=== PATIENT | female | born 1980 | race Caucasian/White ===

== ENCOUNTER 2021-07-05 09:58 | Emergency (ER) | payer MEDICAID ==
[~2021-07-05] VITALS: Ht 149.9 cm; Wt 68.0 kg
[2021-07-05 10:12] VITALS: BP_SYST 130
--- NOTE | 2021-07-05 10:15 | NUR ---
Patient triaged and placed in waiting room. VSS and patient appears in no acute distress at this time. Accompanied by SELF , awaiting available bed, and MD notified of need for MSE.
[2021-07-05 11:34] LABS: BASOPHILS % (AUTO) 0.5 % (0.0-2.0); EOSINOPHILS # (AUTO) 0.2 K/uL (0.0-0.4); EOSINOPHILS % (AUTO) 2.5 % (0.0-4.0); HEMATOCRIT 36.9 % (36-48); HEMOGLOBIN 12.3 g/dL (12.0-16.0); LYMPHOCYTES # (AUTO) 1.3 K/uL (1.0-5.5); LYMPHOCYTES % (AUTO) 14.7 % (20.5-51.5); MEAN CORPUSCULAR HEMOGLOBIN 26 pg (27-31); MEAN CORPUSCULAR HGB CONC 33 % (32-36); MEAN CORPUSCULAR VOLUME 80 fL (79.0-98.0); MONOCYTES # (AUTO) 0.7 K/uL (0.0-1.0); MONOCYTES % (AUTO) 8.1 % (1.7-9.3); NEUTROPHILS # (AUTO) 6.6 K/uL (1.8-7.7); NEUTROPHILS % (AUTO) 74.2 % (40.0-70.0); PLATELET COUNT (AUTO) 277 K/uL (130-430); RED BLOOD CELL COUNT(AUTO) 4.64 MIL/uL (4.2-6.2); RED CELL DISTRIBUTION WIDTH 13.5 % (9.0-15.0); WHITE BLOOD COUNT (AUTO) 8.8 K/uL (4.8-10.8)
--- NOTE | 2021-07-05 12:00 | NUR ---
PT SEEN IN TRIAGE ROOM BY FOR EVALUATION
[2021-07-05 12:12] LABS: CALCIUM 9.6 mg/dL (8.4-11.0); CREATININE 1.03 mg/dL (0.55-1.30); POTASSIUM 4.2 mmol/L (3.5-5.1)
[2021-07-05 12:24] LABS: ALBUMIN 3.5 g/dL (3.4-4.8); TOTAL BILIRUBIN 0.3 mg/dL (0.0-1.0)
[2021-07-05 13:55] LABS: BILIRUBIN,URINE NEGATIVE (NEGATIVE); BLOOD, URINE NEGATIVE (NEGATIVE); CLARITY/URINE CLEAR (CLEAR); COLOR,URINE YELLOW (YELLOW); GLUCOSE,URINE NEGATIVE (NEGATIVE); KETONES,URINE TRACE (NEGATIVE); LEUKOCYTE ESTERASE ,URINE NEGATIVE (NEGATIVE); NITRITE, URINE NEGATIVE (NEGATIVE); PH,URINE 5.5 (5.0-8.0); PROTEIN URINE NEGATIVE (NEGATIVE); UROBILINOGEN,URINE 0.2 (0.2-1.0)
[2021-07-05 14:00] VITALS: BP_SYST 130
== END 2021-07-05 14:00 | disposition left against medical advice (07) ==
LOC: SED 09:58
DX: R10.9 Unspecified abdominal pain (principal); Z88.1 Allergy status to other antibiotic agents
CPT/HCPCS: 36415; 80053; 81003; 84702; 85025; 99283

== ENCOUNTER 2022-05-10 16:03 | Emergency (ER) | payer BC, MEDICAID ==
[~2022-05-10] VITALS: Ht 149.9 cm; Wt 72.6 kg
[2022-05-10 16:10] VITALS: BP_SYST 125
--- NOTE | 2022-05-10 16:17 | NUR ---
Patient triaged and placed in waiting room. VSS and patient appears in no acute distress at this time. Accompanied by SELF, awaiting available bed, and MD notified of need for MSE.
--- NOTE | 2022-05-10 16:19 | NUR ---
PT STATES SHE SLIPPED AND FELL DOWN 1 STAIR INJURING LEFT ANKLE/FOOT. STATES SHE CAN BARELY PUT WEIGHT ON FOOT. LIMPING.
--- NOTE | 2022-05-10 19:10 | NUR ---
MD DR WAITE AT BEDSIDE
[2022-05-10] MEDS ORDERED: IBUP-1969 PO (19:56)
[2022-05-10] MEDS ORDERED: HYDR-3917 PO (19:56)
--- NOTE | 2022-05-10 20:10 | NUR ---
Patient given written and verbal discharge instructions and verbalizes understanding. ER MD discussed with patient the results and treatment provided. Patient in stable condition. ID arm band removed. Rx of HYDROCODONE 5-325, AND MOTRIN 600MG given. Patient educated on pain management and to follow up with PMD. Pain Scale 6/10 . Opportunity for questions provided and answered. Medication side effect fact sheet provided.
[2022-05-10 20:14] VITALS: BP_SYST 125
== END 2022-05-10 20:14 | disposition home or self-care (01) ==
LOC: SED 16:03
DX: S93.412A Sprain of calcaneofibular ligament of left ankle, initial encounter (principal); Z88.1 Allergy status to other antibiotic agents; Z79.899 Other long term (current) drug therapy; W10.9XXA Fall (on) (from) unspecified stairs and steps, initial encounter; Y93.89 Activity, other specified; Y92.89 Other specified places as the place of occurrence of the external cause; Y99.8 Other external cause status
CPT/HCPCS: 99284